=== PATIENT | male | born 1945 | race Two or more races ===

== ENCOUNTER 2024-06-26 05:55 | Day surgery (SDC) | payer OTHER ==
[2024-06-19 12:11] LABS: HEMATOCRIT 41.5 % (39.0-48.0); HEMOGLOBIN 13.8 g/dL (13-16.00); MEAN CORPUSCULAR HEMOGLOBIN 25.5 pg (27.00-32.0); MEAN CORPUSCULAR HGB CONC 33.2 g/dl (32.0-36.0); PLATELET COUNT 192 K/uL (150-450); RED BLOOD COUNT 5.39 M/uL (4.00-6.00); RED CELL DISTRIBUTION WIDTH 16.4 % (11.5-14.5)
[2024-06-19 12:55] LABS: ALBUMIN 3.5 gm/dL (3.4-5.0); BILIRUBIN TOTAL 0.49 mg/dL (0.3-1.2); CALCIUM 8.9 mg/dL (8.5-10.1); CREATININE SERUM 1.41 mg/dL (0.70-1.30); GFR 48.61; GLOBULINA 3.5 G/DL (2.4-3.5); POTASSIUM 4.53 mEq/L (3.5-5.1)
[2024-06-19 13:04] LABS: INR 1.14; PARTIAL THROMBOPLASTIN TIME 30.6 SECONDS (22.0-34.0); PROTHROMBIN TIME 11.4 SECONDS (9.0-11.5)
[~2024-06-26] VITALS: Ht 182.9 cm; Wt 96.2 kg
[~2024-06-26 05:55] MED LIST: COZAAR50 MG PO; ELIQUIS5 M1 PO; GLUCOTROL XL5 MG PO; INSULIN AS100 UNIT/1; LASIX40 MG PO; LEVO-T25 MCG PO; LIPITOR40 M1 PO
[2024-06-26] MEDS ORDERED: POVIDONE-IODINE 118 ML BOTT TOP ONE (11:52)
[2024-06-26] MEDS ORDERED: BUPIVACAINE HCL/MPF 0.5% 30ML VIAL ONE (11:52)
[2024-06-26] MEDS ORDERED: DIBUCAINE 30 GM TUBE ONE (11:52)
[2024-06-26] MEDS ORDERED: LIDOCAINE HCL 1%/EPINEPHRINE 20ML VIAL IJ ONE (11:53)
[2024-06-26] MEDS ORDERED: HEMOSTATIC MATRIX 1 KIT KIT TOP ONE (11:53)
[2024-06-26] MEDS ORDERED: CEFTRIAXONE SODIUM 2,000 MG VIAL ONE (11:57)
[2024-06-26] MEDS ORDERED: METRONIDAZOLE/SODIUM CHLORIDE 500 MG/100 ML PIGGYBACK IV ONE (11:57)
[2024-06-26] MEDS ORDERED: NEURONTIN300 MG PO (13:37)
[2024-06-26] MEDS ORDERED: PERCOCET 5-3251 EACH PO (13:38)
[2024-06-26] MEDS ORDERED: CELECOXIB200 MG PO (13:38)
== END 2024-06-26 17:40 | disposition home or self-care (01) ==
LOC: CIR.AMB 05:55
PROVIDERS: ATTEND Surgery
DX: D12.9 Benign neoplasm of anus and anal canal (principal); K64.2 Third degree hemorrhoids; E11.9 Type 2 diabetes mellitus without complications; I10 Essential (primary) hypertension; E03.9 Hypothyroidism, unspecified